=== PATIENT | female | born 1970 | race American Indian/Alaskan Native ===

== ENCOUNTER 2016-08-29 09:47 | Outpatient (CLI) | payer BC ==
[2016-08-29 10:12] LABS: Basophils % (Auto) 0.7 % (0.0-1.8); Eosinophils % (Auto) 1.3 % (0.0-4.3); Hematocrit 37.7 % (30.3-42.9); Hemoglobin 11.8 gm/dl (10.1-14.3); Mean Corpuscular HGB Conc 31 % (30-34); Mean Corpuscular Hemoglobin 20 pg (28-32); Mean Corpuscular Volume 63 fl (79-97); Platelet Count 228 K/mm3 (140-440); Red Blood Count 6.01 M/mm3 (3.65-5.03); Red Cell Distribution Width 16.5 % (13.2-15.2); White Blood Count 6.4 K/mm3 (4.5-11.0)
[2016-08-29 10:35] LABS: Alanine Aminotransferase 7 units/L (7-56); Albumin 4.4 g/dL (3.9-5); Albumin/Globulin Ratio 1.5 %; Alkaline Phosphatase 81 units/L (35-129); Anion Gap 17 mmol/L; BUN/Creatinine Ratio 13.75; Bilirubin,Total 0.4 mg/dL (0.1-1.2); Blood Urea Nitrogen 11 mg/dL (7-17); Calcium 9.7 mg/dL (8.4-10.2); Carbon Dioxide 27 mmol/L (22-30); Cholesterol 131 mg/dL (50-199); Glucose 114 mg/dL (65-100); HDL Cholesterol 62 mg/dL (40-59); LDL Cholesterol,Direct 53 mg/dL (50-130); Potassium 3.7 mmol/L (3.6-5.0); Sodium 138 mmol/L (137-145); Total Protein 7.4 g/dL (6.3-8.2); Triglycerides 81 mg/dL (2-149)
== END 2016-08-29 09:48 | disposition home or self-care (01) ==
LOC: LAB 09:47
PROVIDERS: ATTEND Internal Medicine
DX: E88.9 Metabolic disorder, unspecified (principal); R68.89 Other general symptoms and signs; E03.9 Hypothyroidism, unspecified; E78.00 Pure hypercholesterolemia, unspecified
CPT/HCPCS: 36415; 80053; 80061; 84443; 85025

== ENCOUNTER 2017-01-24 09:09 | Outpatient (CLI) | payer BC ==
[2017-01-24 09:27] LABS: Eosinophils % (Auto) 1.8 % (0.0-4.3); Hematocrit 37.9 % (30.3-42.9); Hemoglobin 11.8 gm/dl (10.1-14.3); Mean Corpuscular HGB Conc 31 % (30-34); Platelet Count 191 K/mm3 (140-440); Red Blood Count 5.98 M/mm3 (3.65-5.03); Red Cell Distribution Width 17.2 % (13.2-15.2); White Blood Count 5.9 K/mm3 (4.5-11.0)
[2017-01-24 09:39] LABS: Mean Corpuscular Hemoglobin 20 pg (28-32); Mean Corpuscular Volume 63 fl (79-97)
[2017-01-24 09:52] LABS: Alanine Aminotransferase 7 units/L (7-56); Albumin 4.4 g/dL (3.9-5); Albumin/Globulin Ratio 1.5 %; Alkaline Phosphatase 69 units/L (35-129); Anion Gap 18 mmol/L; Blood Urea Nitrogen 12 mg/dL (7-17); Carbon Dioxide 25 mmol/L (22-30); Chloride 100.8 mmol/L (98-107); Cholesterol 118 mg/dL (50-199); Glucose 97 mg/dL (65-100); HDL Cholesterol 56 mg/dL (40-59); LDL Cholesterol,Direct 45 mg/dL (50-130); Potassium 3.9 mmol/L (3.6-5.0); Sodium 140 mmol/L (137-145); Total Protein 7.4 g/dL (6.3-8.2); Triglycerides 89 mg/dL (2-149)
== END 2017-01-24 09:10 | disposition home or self-care (01) ==
LOC: LAB 09:09
PROVIDERS: ATTEND Internal Medicine
DX: Z00.00 Encounter for general adult medical examination without abnormal findings (principal); I10 Essential (primary) hypertension; Z79.899 Other long term (current) drug therapy
CPT/HCPCS: 36415; 80053; 80061; 83036; 84443; 85025

== ENCOUNTER 2017-03-06 08:04 | Outpatient (CLI) | payer BC ==
--- NOTE | 2017-03-06 09:33 | Mammography Report ---
BILATERAL MAMMOGRAM: FINDINGS: The breast tissue is heterogeneously dense, which could obscure detection of small masses (approximately 50%-75% glandular). No mass, distortion, suspicious calcification, or skin change is seen. No significant change when compared to prior examination in February 2016. CAD was utilized. IMPRESSION: Negative mammogram. There is no mammographic evidence of malignancy. RECOMMENDATION: Follow-up per ACS guidelines. BI-RADS CATEGORY: 1 = Negative ACR BI-RADS MAMMOGRAPHIC CODES: 0 = Needs additional imaging evaluation; 1 = Negative; 2 = Benign; 3 = Probably benign; 4 = Suspicious; 5 = Malignant; 6 = Known biopsy-proven malignancy COMMENT: 1. Dense breast tissue, i.e., adenosis, fibrocystic changes, etc., may obscure an underlying neoplasm. 2. Approximately 10% of cancers are not detected with mammography. 3. A negative mammography report should not delay biopsy if a clinically suspicious mass is present. COMMENT: Patient follow-up letters are generated in [employer].
== END 2017-03-06 08:05 | disposition home or self-care (01) ==
LOC: MAMMO 08:04
PROVIDERS: ATTEND Obstetrics & Gynecology
DX: Z12.31 Encounter for screening mammogram for malignant neoplasm of breast (principal)
CPT/HCPCS: 77067; G0202

== ENCOUNTER 2017-07-23 15:36 | Outpatient (CLI) | payer BC ==
--- NOTE | 2017-07-23 17:12 | Cat Scan Report ---
FINAL REPORT PROCEDURE: CT head without contrast. TECHNIQUE: Computerized tomography of the head was performed without contrast material. HISTORY: Blunt head trauma, possible concussion. COMPARISON: No prior studies are available for comparison. FINDINGS: The ventricles are normal in size. There is a focal area of diminished attenuation near the right external capsule. This may represent a dilated perivascular space of Virchow-Abner. The donnelly matter and white matter otherwise appear normal. There are no mass lesions. There is no intracranial hemorrhage. The calvarium appears intact. The mastoid air cells and visualized paranasal sinuses are clear. IMPRESSION: Normal study.
== END 2017-07-23 15:37 | disposition home or self-care (01) ==
LOC: CT 15:36
PROVIDERS: ATTEND Internal Medicine
DX: S09.90XD Unspecified injury of head, subsequent encounter (principal); X58.XXXD Exposure to other specified factors, subsequent encounter
CPT/HCPCS: 70450

== ENCOUNTER 2018-02-09 08:15 | Outpatient (CLI) | payer BC ==
[2018-02-09 08:44] LABS: Basophils % (Auto) 0.5 % (0.0-1.8); Eosinophils # (Auto) 0.1 K/mm3 (0.0-0.4); Eosinophils % (Auto) 1.5 % (0.0-4.3); Hematocrit 36.1 % (30.3-42.9); Hemoglobin 11.4 gm/dl (10.1-14.3); Lymphocytes # (Auto) 2.2 K/mm3 (1.2-5.4); Lymphocytes % (Auto) 34.8 % (13.4-35.0); Mean Corpuscular HGB Conc 32 % (30-34); Monocytes # (Auto) 0.4 K/mm3 (0.0-0.8); Platelet Count 179 K/mm3 (140-440); Red Blood Count 5.68 M/mm3 (3.65-5.03); Red Cell Distribution Width 17.8 % (13.2-15.2)
[2018-02-09 08:45] LABS: Mean Corpuscular Hemoglobin 20 pg (28-32); Mean Corpuscular Volume 64 fl (79-97)
[2018-02-09 08:54] LABS: Alanine Aminotransferase 9 units/L (7-56); Albumin 4.3 g/dL (3.9-5); BUN/Creatinine Ratio 18; Blood Urea Nitrogen 14 mg/dL (7-17); Calcium 9.7 mg/dL (8.4-10.2); Chol/HDL Ratio 2.37 %; HDL Cholesterol 69 mg/dL (40-59); Hemolysis Index 0; LDL Cholesterol,Direct 68 mg/dL (50-130)
== END 2018-02-09 08:16 | disposition home or self-care (01) ==
LOC: LAB 08:15
PROVIDERS: ATTEND Internal Medicine
DX: Z01.818 Encounter for other preprocedural examination (principal); E11.9 Type 2 diabetes mellitus without complications; I10 Essential (primary) hypertension
CPT/HCPCS: 36415; 80053; 80061; 84443; 85025

== ENCOUNTER 2018-03-09 08:20 | Outpatient (CLI) | payer BC ==
--- NOTE | 2018-03-09 15:04 | Mammography Report ---
BILATERAL DIGITAL SCREENING MAMMOGRAM with CAD: 03/09/18 08:20:00 CLINICAL: Routine screening. COMPARISON:03/06/17 FINDINGS: The breasts are heterogeneously dense, which may obscure small masses. No mass, architectural distortion or suspicious calcifications. IMPRESSION: No mammographic evidence of malignancy. BI-RADS CATEGORY: 1 - - Negative RECOMMENDATION: Routine mammographic screening in one year. COMMENT: Patient follow-up letters are generated by our [employer] application.
== END 2018-03-09 08:21 | disposition home or self-care (01) ==
LOC: MAMMO 08:20
PROVIDERS: ATTEND Obstetrics & Gynecology
DX: Z12.31 Encounter for screening mammogram for malignant neoplasm of breast (principal); I10 Essential (primary) hypertension
CPT/HCPCS: 77067

== ENCOUNTER 2018-12-17 13:31 | Outpatient (CLI) | payer BC ==
--- NOTE | 2018-12-17 15:20 | Cat Scan Report ---
CT HEAD WITHOUT CONTRAST HISTORY: Left arm numbness since September. COMPARISON: 07/23/2017 TECHNIQUE: CT images of the head were obtained without contrast. CONTRAST: None. FINDINGS: Cerebral and Cerebellar Hemispheres: No evidence of mass or mass effect. No midline shift. No acute hemorrhage. No acute cortical infarction. No extra-axial fluid collection. Ventricles: Normal in size and configuration for age. Osseous Structures: No significant abnormality. Visualized Paranasal Sinuses: No significant abnormality. Additional Findings: None IMPRESSION: 1. No acute intracranial abnormality. NOTE: Acute infarct may not be visible by noncontrast CT. Signer Name: Oscar Pierre MD Signed: 12/17/2018 3:16 PM Workstation Name: [id number]
== END 2018-12-17 13:32 | disposition home or self-care (01) ==
LOC: CT 13:31
PROVIDERS: ATTEND Internal Medicine
DX: R20.2 Paresthesia of skin (principal); I10 Essential (primary) hypertension
CPT/HCPCS: 70450

== ENCOUNTER 2019-01-01 07:52 | Day surgery (SDC) | payer BC ==
--- NOTE | 2019-01-01 12:30 | Magnetic Resonance Report ---
MR CERVICAL SPINE WITHOUT CONTRAST HISTORY: Numbness in arm, neck pain. TECHNIQUE: Multisequence, multiplanar MRI without IV gadolinium. COMPARISON: None. FINDINGS: There is normal height and alignment of the cervical vertebral bodies. Normal bone marrow signal. The posterior elements are in appropriate relationship. The cervical spinal cord is normal size and signal intensity throughout. No central canal stenosis. There is mild disc space narrowing at C5-6. The remaining disc levels are normal height. No facet art hropathy. The paravertebral soft tissues are unremarkable. C2-3: Normal. C3-4: Normal. C4-5: Normal. C5-6: A mild to moderate diffuse posterior bulging disc is identified which effaces the anterior thec al sac. This disc appears to abut the right side of the spinal cord but does not displace it. The spi nal canal measures 1.1 cm in AP dimension. No neural foraminal narrowing. C6-7: Minimal posterior bulging disc without mass effect. C7-T1: Normal. IMPRESSION: Mild to moderate posterior bulging disc at C5-6 as described. No focal herniation. No central canal s tenosis or neural foraminal stenosis. Signer Name: Walter Fisher Jr, MD Signed: 01/01/2019 12:26 PM Workstation Name: [id number]
== END 2019-01-01 07:53 | disposition home or self-care (01) ==
LOC: CATHLABREC 07:52 → EDSTATUS 08:00
PROVIDERS: ATTEND Internal Medicine Cardiovascular Disease
DX: M50.822 Other cervical disc disorders at C5-C6 level (principal); I10 Essential (primary) hypertension; R20.2 Paresthesia of skin; Z79.899 Other long term (current) drug therapy
CPT/HCPCS: 72141

== ENCOUNTER 2019-03-10 08:39 | Outpatient (CLI) | payer BC ==
--- NOTE | 2019-03-10 12:56 | Mammography Report ---
DIGITAL SCREENING MAMMOGRAM WITH CAD, 03/10/2019 INDICATION: Routine screening mammography. TECHNIQUE: Digital bilateral 2D mammography was obtained in the craniocaudal and mediolateral obliq ue projections. This examination was interpreted with the benefit of Computer-Aided Detection analysi s. COMPARISON: 03/09/2018 FINDINGS: Breast Density: The breasts are heterogeneously dense, which may obscure small masses. There is no evidence of dominant mass, suspicious calcifications or architectural distortion in eithe r breast. IMPRESSION: No mammographic evidence of malignancy. Follow up recommendation: Routine yearly BI-RADS Category 1: Negative. A "normal" or negative report should not discourage follow up or biopsy of a clinically significant f inding. A written summary of these findings will be mailed to the patient. The patient will be entered into a mammography reporting system which will generate a reminder letter for the patient's next appointmen t at the appropriate interval. The [employer] recommends yearly mammograms starting at age 40 and continuing as l kee as a woman is in good health. Breast MRI is recommended for women with an approximate 20-25% or greater lifetime risk of breast cancer, including women with a strong family history of breast or ova ryan cancer or who have been treated for Hodgkin's disease. Signer Name: Oscar Pierre MD Signed: 03/10/2019 12:51 PM Workstation Name: [id number]
== END 2019-03-10 08:40 | disposition home or self-care (01) ==
LOC: MAMMO 08:39
PROVIDERS: ATTEND Internal Medicine
DX: Z12.31 Encounter for screening mammogram for malignant neoplasm of breast (principal)
CPT/HCPCS: 77067

== ENCOUNTER 2019-11-19 10:05 | Outpatient (CLI) | payer BC ==
[2019-11-19 10:31] LABS: Basophils % (Auto) 0.6 % (0.0-1.8); Eosinophils # (Auto) 0.1 K/mm3 (0.0-0.4); Eosinophils % (Auto) 1.4 % (0.0-4.3); Hematocrit 36.1 % (30.3-42.9); Hemoglobin 11.7 gm/dl (10.1-14.3); Lymphocytes # (Auto) 2.1 K/mm3 (1.2-5.4); Lymphocytes % (Auto) 35.2 % (13.4-35.0); Mean Corpuscular HGB Conc 32 % (30-34); Mean Corpuscular Volume 65 fl (79-97); Monocytes # (Auto) 0.4 K/mm3 (0.0-0.8); Monocytes % (Auto) 7.3 % (0.0-7.3); Platelet Count 241 K/mm3 (140-440); Red Blood Count 5.58 M/mm3 (3.65-5.03); Red Cell Distribution Width 18.1 % (13.2-15.2)
[2019-11-19 11:00] LABS: Alanine Aminotransferase 10 units/L (7-56); Albumin 4.6 g/dL (3.9-5); BUN/Creatinine Ratio 14; Blood Urea Nitrogen 13 mg/dL (7-17); Calcium 9.8 mg/dL (8.4-10.2); Hemolysis Index 2; LDL Cholesterol,Direct 72 mg/dL (50-130)
[2019-11-19 11:55] LABS: Chol/HDL Ratio 2.27 %; HDL Cholesterol 70 mg/dL (40-59)
== END 2019-11-19 10:06 | disposition home or self-care (01) ==
LOC: LAB 10:05
PROVIDERS: ATTEND Internal Medicine
DX: I10 Essential (primary) hypertension (principal)
CPT/HCPCS: 36415; 80053; 80061; 83036; 84443; 85025

== ENCOUNTER 2020-03-13 08:41 | Outpatient (CLI) | payer BC ==
--- NOTE | 2020-03-13 09:52 | Mammography Report ---
DIGITAL SCREENING MAMMOGRAM WITH CAD, 03/13/2020 INDICATION: Routine screening mammography. SCREENING MAMMOGRAM TECHNIQUE: Digital bilateral 2D mammography was obtained in the craniocaudal and mediolateral obliq ue projections. This examination was interpreted with the benefit of Computer-Aided Detection analysi s. COMPARISON: 03/10/2019 FINDINGS: Breast Density: The breasts are heterogeneously dense, which may obscure small masses. There is no evidence of dominant mass, suspicious calcifications or architectural distortion in eithe r breast. IMPRESSION: Follow up recommendation: Routine yearly BI-RADS Category 1: Negative. A "normal" or negative report should not discourage follow up or biopsy of a clinically significant f inding. A written summary of these findings will be mailed to the patient. The patient will be entered into a mammography reporting system which will generate a reminder letter for the patient's next appointmen t at the appropriate interval. The [employer] recommends yearly mammograms starting at age 40 and continuing as l kee as a woman is in good health. Breast MRI is recommended for women with an approximate 20-25% or greater lifetime risk of breast cancer, including women with a strong family history of breast or ova ryan cancer or who have been treated for Hodgkin's disease. Signer Name: Ty Gunn MD Signed: 03/13/2020 9:47 AM Workstation Name: [id number]
== END 2020-03-13 08:42 | disposition home or self-care (01) ==
LOC: MAMMO 08:41
PROVIDERS: ATTEND Internal Medicine
DX: Z12.31 Encounter for screening mammogram for malignant neoplasm of breast (principal)
CPT/HCPCS: 77067

== ENCOUNTER 2020-03-24 08:14 | Outpatient (CLI) | payer BC ==
[2020-03-24 08:42] LABS: Basophils % (Auto) 0.6 % (0.0-1.8); Eosinophils # (Auto) 0.1 K/mm3 (0.0-0.4); Hematocrit 36.8 % (30.3-42.9); Hemoglobin 11.7 gm/dl (10.1-14.3); Lymphocytes % (Auto) 34.3 % (13.4-35.0); Mean Corpuscular HGB Conc 32 % (30-34); Monocytes # (Auto) 0.4 K/mm3 (0.0-0.8); Monocytes % (Auto) 7.4 % (0.0-7.3); Platelet Count 190 K/mm3 (140-440); Red Blood Count 5.66 M/mm3 (3.65-5.03)
[2020-03-24 08:43] LABS: Mean Corpuscular Volume 65 fl (79-97)
[2020-03-24 09:03] LABS: Alanine Aminotransferase 11 units/L (7-56); Albumin 4.3 g/dL (3.9-5); BUN/Creatinine Ratio 20; Blood Urea Nitrogen 18 mg/dL (7-17); Calcium 9.8 mg/dL (8.4-10.2); Chol/HDL Ratio 2.16 %; HDL Cholesterol 71 mg/dL (40-59); Hemolysis Index 0; LDL Cholesterol,Direct 67 mg/dL (50-130)
== END 2020-03-24 08:15 | disposition home or self-care (01) ==
LOC: LAB 08:14
PROVIDERS: ATTEND Internal Medicine
DX: Z13.29 Encounter for screening for other suspected endocrine disorder (principal); R68.89 Other general symptoms and signs; E78.5 Hyperlipidemia, unspecified; R79.89 Other specified abnormal findings of blood chemistry; R94.6 Abnormal results of thyroid function studies; R73.09 Other abnormal glucose; E03.9 Hypothyroidism, unspecified
CPT/HCPCS: 36415; 80053; 80061; 83036; 84443; 85025

== ENCOUNTER 2020-07-11 16:30 | Emergency (ER) | payer BC ==
[2020-07-11 16:52] VITALS: BP 147/87
[2020-07-11] MEDS ORDERED: ALUM-MAG HYDROXIDE-SIMETHICONE 200-200-20MG/5ML ORAL LIQD 30 ML PO ONE (16:52)
[2020-07-11] MEDS ORDERED: ASPIRIN 325 MG TAB PO ONE (16:52)
[2020-07-11] MEDS ORDERED: LIDOCAINE VISCOUS 2% 15 ML ORAL LIQD PO ONE (16:52)
--- NOTE | 2020-07-11 16:55 | Event Note ---
ED Screening Note Date of service: 07/11/20 Time: 16:53 ED Screening Note: 49-year-old -[place] female with a history of hypertension who presents to the ED with acute onset persistent shortness of breath and constant substernal chest pain which she describes as sharp for the last 2 days. Patient states patient states that her symptoms are worse with exertion and any movement. Patient denies dizziness, syncope, palpitations, change in vision, cough, abdominal pain, nausea, vomiting, fever, chills, sore throat, headache, change in vision, traumatic injury or heavy lifting. This initial assessment/diagnostic orders/clinical plan/treatment(s) is/are subject to change based on patients health status, clinical progression and re- assessment by fellow clinical providers in the ED. Further treatment and workup at subsequent clinical providers discretion. Patient/guardian urged not to elope from the ED as their condition may be serious if not clinically assessed and managed. Initial orders include: CBC, CMP, troponin, chest x-ray, EKG, aspirin 325 mg p.o. x1, GI cocktail
--- NOTE | 2020-07-11 17:27 | XRay Report ---
CHEST PA AND LATERAL VIEWS INDICATION: chest pain. COMPARISON: 08/26/2017. FINDINGS: Support devices: None. Heart: Within normal limits. Lungs/Pleura: No acute pulmonary or pleural findings. IMPRESSION: 1. No acute findings. Signer Name: Carlos Kaye MD Signed: 07/11/2020 5:22 PM Workstation Name: [id number]
[2020-07-11 17:56] LABS: Alanine Aminotransferase 19 units/L (7-56); Albumin 4.9 g/dL (3.9-5); BUN/Creatinine Ratio 19; Basophils % (Auto) 0.5 % (0.0-1.8); Blood Urea Nitrogen 17 mg/dL (7-17); Calcium 9.6 mg/dL (8.4-10.2); Eosinophils # (Auto) 0.1 K/mm3 (0.0-0.4); Hematocrit 35.2 % (30.3-42.9); Hemoglobin 11.4 gm/dl (10.1-14.3); Hemolysis Index 2; Lymphocytes # (Auto) 1.9 K/mm3 (1.2-5.4); Lymphocytes % (Auto) 19.5 % (13.4-35.0); Mean Corpuscular HGB Conc 32 % (30-34); Mean Corpuscular Volume 66 fl (79-97); Monocytes # (Auto) 0.8 K/mm3 (0.0-0.8); Platelet Count 204 K/mm3 (140-440); Red Blood Count 5.38 M/mm3 (3.65-5.03); Red Cell Distribution Width 17.4 % (13.2-15.2)
== END 2020-07-11 19:00 | disposition left against medical advice (07) ==
LOC: ED 16:30
DX: R07.9 Chest pain, unspecified (principal); Z53.21 Procedure and treatment not carried out due to patient leaving prior to being seen by health care provider
CPT/HCPCS: 36415; 71046; 80053; 84484; 85025; 93005

== ENCOUNTER 2020-11-29 09:17 | Emergency (ER) | payer BC ==
--- NOTE | 2020-11-29 10:51 | XRay Report ---
XR chest routine 2V INDICATION / CLINICAL INFORMATION: chest pain. COMPARISON: 07/11/2020 FINDINGS: SUPPORT DEVICES: None. HEART /PULMONARY VASCULATURE: No significant abnormality. LUNGS / PLEURA: No significant pulmonary or pleural abnormality. No pneumothorax. ADDITIONAL FINDINGS: No significant additional findings. IMPRESSION: 1. No acute findings. Signer Name: Conner Upton MD Signed: 11/29/2020 10:47 AM Workstation Name: [email or web address]
--- NOTE | 2020-11-29 10:56 | Cat Scan Report ---
. CT head/brain wo con INDICATION / CLINICAL INFORMATION: 49 years Female; acute left arm/leg numbness X1DAY . TECHNIQUE: Routine CT head without contrast. All CT scans at this location are performed using CT dos e reduction for ALARA by means of automated exposure control. COMPARISON: 11/17/2018 FINDINGS: BRAIN / INTRACRANIAL CONTENTS: No acute hemorrhage, mass effect, midline shift, hydrocephalus, or acu te, large territorial infarct. No signs of significant atrophy or chronic infarct. No significant whi te matter abnormality seen. Presumed perivascular space seen in the inferior gangliocapsular region on the right, which should be of no clinical significance. CRANIOCERVICAL JUNCTION: No significant abnormality. ORBITS: No significant abnormality of visualized orbits. SINUSES / MASTOIDS: Visualized paranasal sinuses and mastoid air cells are essentially clear. ADDITIONAL FINDINGS: None. IMPRESSION: 1. No focal mass, hemorrhage, hydrocephalus, or acute, large territorial infarct. Signer Name: Hank Flores MD, III Signed: 11/29/2020 10:51 AM Workstation Name: [id number]
--- NOTE | 2020-11-29 11:45 | Emergency Department Report ---
ED General Adult HPI - General Chief complaint: High BP Stated complaint: high blood pressure Time Seen by Provider: 11/29/20 09:56 Source: patient Mode of arrival: Ambulatory Limitations: No Limitations - History of Present Illness Initial comments: 49-year-old -[place] female patient with history of hypertension presents with complaints of sudden onset of left arm and leg numbness starting around 6 AM this morning. No prior history of CVA per patient. She denies any headache, vision changes, dizziness, confusion, memory loss, difficulty with speech/ambulation, or weakness in her limbs. Patient reports that her blood pressure has been uncontrolled over the past 5 days and has been running around 170/100. She is compliant with her metoprolol per patient. She also denies any chest pain, shortness of breath, or head injuries. -: Sudden - Related Data Home Medications Medication Instructions Recorded Confirmed Last Taken Metoprolol [Lopressor TAB] 25 mg PO QDAY 08/26/17 08/26/17 08/26/17 hydroCHLOROthiazide [HCTZ] 25 mg PO QDAY 08/26/17 08/26/17 08/26/17 Allergies Allergy/AdvReac Type Severity Reaction Status Date / Time No Known Allergies Allergy Verified 11/29/20 09:42 ED Review of Systems ROS: Stated complaint: high blood pressure Other details as noted in HPI Constitutional: denies: chills, fever Eyes: denies: vision change Respiratory: denies: cough, shortness of breath Cardiovascular: denies: chest pain Neurological: denies: headache, weakness, confusion, abnormal gait ED Past Medical Hx - Past Medical History Hx Hypertension: Yes - Surgical History Past Surgical History?: No - Social History Smoking Status: Never Smoker Substance Use Type: None - Medications Home Medications: Home Medications Medication Instructions Recorded Confirmed Last Taken Type Metoprolol [Lopressor TAB] 25 mg PO QDAY 08/26/17 08/26/17 08/26/17 History hydroCHLOROthiazide [HCTZ] 25 mg PO QDAY 08/26/17 08/26/17 08/26/17 History ED Physical Exam - General Limitations: No Limitations ED Course Vital Signs 11/29/20 11/29/20 09:43 12:11 Temperature 98.5 F Pulse Rate 64 57 L Respiratory 18 12 Rate Blood Pressure 166/98 164/89 O2 Sat by Pulse 97 99 Oximetry ED Medical Decision Making - Lab Data Result diagrams: 11/29/20 11:48 11/29/20 11:48 Lab Results 11/29/20 11/29/20 11/29/20 Range/Units 11:48 11:48 11:48 WBC 6.2 (4.5-11.0) K/mm3 RBC 5.80 H (3.65-5.03) M/mm3 Hgb 12.5 (10.1-14.3) gm/dl Hct 38.1 (30.3-42.9) % MCV 66 L (79-97) fl MCH 22 L (28-32) pg MCHC 33 (30-34) % RDW 18.0 H (13.2-15.2) % Plt Count 212 (140-440) K/mm3 Lymph % (Auto) 29.9 (13.4-35.0) % Imperial % (Auto) 8.4 H (0.0-7.3) % Eos % (Auto) 1.3 (0.0-4.3) % Baso % (Auto) 0.6 (0.0-1.8) % Lymph # (Auto) 1.8 (1.2-5.4) K/mm3 Imperial # (Auto) 0.5 (0.0-0.8) K/mm3 Eos # (Auto) 0.1 (0.0-0.4) K/mm3 Baso # (Auto) 0.0 (0.0-0.1) K/mm3 Seg Neutrophils % 59.8 (40.0-70.0) % Seg Neutrophils # 3.7 (1.8-7.7) K/mm3 Sodium 136 L (137-145) mmol/L Potassium 4.0 (3.6-5.0) mmol/L Chloride 96.4 L (98-107) mmol/L Carbon Dioxide 28 (22-30) mmol/L Anion Gap 16 mmol/L BUN 16 (7-17) mg/dL Glucose 100 (65-100) mg/dL Calcium 10.2 (8.4-10.2) mg/dL Total Bilirubin 0.30 (0.1-1.2) mg/dL AST 31 (5-40) units/L ALT 22 (7-56) units/L Alkaline Phosphatase 113 (35-129) units/L Troponin T < 0.010 (0.00-0.029) ng/mL Total Protein 7.6 (6.3-8.2) g/dL Albumin 4.7 (3.9-5) g/dL Albumin/Globulin Ratio 1.6 % - Medical Decision Making 49-year-old -[place] female patient with history of hypertension presents with complaints of sudden onset of left arm and leg numbness starting around 6 AM this morning. No prior history of CVA per patient. She denies any headache, vision changes, dizziness, confusion, memory loss, difficulty with speech/ambulation, or weakness in her limbs. Patient reports that her blood pressure has been uncontrolled over the past 5 days and has been running around 170/100. She is compliant with her metoprolol per patient. She also denies any chest pain, shortness of breath, or head injuries. She denies any current leg numbness, but continues to complain of tingling in the left arm and hand. No neck pain or injuries to the neck or shoulder per patient. Neuro exam is normal. Blood pressure noted to be 164/89. No significant abnormalities noted on CBC or CMP. Patient in detail with Dr. Hernández who also evaluated patient-symptoms do not appear to be due to CVA/TIA. Recommend patient follows up with her primary care doctor within 2 days. Patient is well-appearing and stable for discharge home. Strict return precautions were discussed in great detail with patient who verbalizes understanding. Critical care attestation.: If time is entered above; I have spent that time in minutes in the direct care of this critically ill patient, excluding procedure time. ED Disposition Clinical Impression: Arm paresthesia, left, Elevated blood pressure reading Disposition: DC- TO HOME OR SELFCARE Is pt being admited?: No Condition: Stable Instructions: Paresthesia, Managing Your Hypertension Referrals: PRIMARY CARE, [Referring] - 2-3 Days
[2020-11-29 12:13] VITALS: BP 164/89
[2020-11-29 12:25] LABS: Basophils % (Auto) 0.6 % (0.0-1.8); Eosinophils # (Auto) 0.1 K/mm3 (0.0-0.4); Eosinophils % (Auto) 1.3 % (0.0-4.3); Hematocrit 38.1 % (30.3-42.9); Hemoglobin 12.5 gm/dl (10.1-14.3); Lymphocytes # (Auto) 1.8 K/mm3 (1.2-5.4); Lymphocytes % (Auto) 29.9 % (13.4-35.0); Mean Corpuscular HGB Conc 33 % (30-34); Monocytes # (Auto) 0.5 K/mm3 (0.0-0.8); Monocytes % (Auto) 8.4 % (0.0-7.3); Platelet Count 212 K/mm3 (140-440)
[2020-11-29 12:42] LABS: Alanine Aminotransferase 22 units/L (7-56); Albumin 4.7 g/dL (3.9-5); Blood Urea Nitrogen 16 mg/dL (7-17); Calcium 10.2 mg/dL (8.4-10.2); Hemolysis Index 18
[2020-11-29 12:50] LABS: Mean Corpuscular Volume 66 fl (79-97)
[2020-11-29 13:06] LABS: BUN/Creatinine Ratio 23
--- NOTE | 2020-11-30 09:14 | Electrocardiograph Report ---
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
== END 2020-11-29 13:52 | disposition home or self-care (01) ==
LOC: ED 09:17
DX: R20.2 Paresthesia of skin (principal); M79.602 Pain in left arm; R03.0 Elevated blood-pressure reading, without diagnosis of hypertension; I10 Essential (primary) hypertension; Z79.899 Other long term (current) drug therapy
CPT/HCPCS: 36415; 70450; 71046; 80053; 84484; 85025; 93005; 99284

== ENCOUNTER 2021-02-16 09:37 | Day surgery (SDC) | payer BC ==
[~2021-02-16 09:37] MED LIST: SODIUM CHLORIDE 0.9% 1000 ML 1,000 ML IV SCH
--- NOTE | 2021-02-16 10:38 | Anesthesia Day of Surgery ---
Anesthesia Day of Surgery - Day of Surgery Patient Examined: Yes Patient H&P Reviewed: Yes Patient is NPO: Yes
--- NOTE | 2021-02-16 10:38 | Anesthesia Consultation ---
Anesthesia Consult and Med Hx Date of service: 02/16/21 - Airway Anesthetic Teeth Evaluation: Good ROM Head & Neck: Adequate Mental/Hyoid Distance: Adequate Mallampati Class: Class II Intubation Access Assessment: Probably Good - Pre-Operative Health Status ASA Pre-Surgery Classification: ASA2 Proposed Anesthetic Plan: MAC - Pulmonary Hx Smoking: No Hx Respiratory Symptoms: No - Cardiovascular System Hx Hypertension: Yes (took antihypertensive this morning) - Central Nervous System CVA: No - Endocrine Hx Renal Disease: No Hx Liver Disease: No Hx Insulin Dependent Diabetes: No Hx Non-Insulin Dependent Diabetes: No Hx Thyroid Disease: No - Other Systems Hx Obesity: No - Additional Comments Anesthesia Medical History Comments: No prior anesthetics. No FHx anesthetic complications.
[2021-02-16] MEDS ORDERED: LIDOCAINE MPF (2%) 20 MG/1 ML VIAL 5 ML ONE (10:49)
[2021-02-16] MEDS ORDERED: propofoL 200 MG/20 ML VIAL IV ONE ×2 (10:49→10:58)
--- NOTE | 2021-02-16 11:09 | Procedure Note ---
Date of procedure: 02/16/21 Pre-op diagnosis: Colon Polyp Screemning Post-op diagnosis: other (No Colon Polyp or Diverticular Disease or Internal Hemorrhoids noted/ Moderate, Severe Melanosis Coli) Procedure: Colonoscopy Anesthesia: MAC Surgeon: ROZ JOSEPH Estimated blood loss: none Pathology: none Condition: stable Disposition: same day (Resume home medicaion and f/u in 1 to 2 weeks ([phone]).)
[2021-02-16 11:28] VITALS: BP 134/84
--- NOTE | 2021-02-16 12:45 | Operative Report ---
DATE OF SURGERY: 02/16/2021 PROCEDURE: Colonoscopy. INDICATIONS: This is a 50-year-old female who has a strong family history of cancer. The patient's father had stomach cancer and maternal aunt had breast cancer. Colonoscopy was done as part of colon polyp screening. She has not had a colonoscopy done before. DESCRIPTION OF PROCEDURE: Procedure was done after getting informed consent with MAC anesthesia. Initial rectal examination was unremarkable. The instrument was passed through the rectum onto the cecum, which was identified by the ileocecal valve and appendiceal orifice. Visualization was fair to good. The cecum was also visualized on the retroverted view. No additional pathology was noted. There was extensive melanosis coli noted throughout the colon, which was moderately severe. Other than for the melanosis coli, the cecum, ascending colon, transverse colon, descending colon and sigmoid as well as the rectum showed normal mucosa. There was no evidence of any polyps, colitis or diverticular disease. The rectum appeared normal on the retroverted view without any evidence of any internal hemorrhoids. No biopsies were done. There was no bleeding associated with the procedure. No complications associated with the procedure. ASSESSMENT: Colon polyp screening, no colon polyps noted. No diverticula noted. Moderately severe melanosis coli. No internal hemorrhoid. The patient has a family history of cancer. PLAN: To give the patient some laxatives like Linzess or Motegrity once the patient comes for followup. Otherwise, resume home medication. Have the patient follow up in the office in 1-2 weeks' time. Procedure was done in the GI lab with assistance of the GI lab team, which included the GI nurse, the emergency spill response technician, and with assistance of anesthesia. TID: [id number] RECEIPT: [id number] KEITH/ALDA
--- NOTE | 2021-02-16 13:04 | Post Anesthesia Evaluation ---
- Post Anesthesia Evaluation Patient Participated: Yes Airway Patent: Yes Stable Respiratory Function: Yes Nausea/Vomiting: No Temp > 96.8F: Yes Pain Manageable: Yes Adequeate Hydration: Yes Anesthesia Complications: No
== END 2021-02-16 11:45 | disposition home or self-care (01) ==
LOC: GIO 09:37
DX: Z12.11 Encounter for screening for malignant neoplasm of colon (principal); Z80.0 Family history of malignant neoplasm of digestive organs; K63.89 Other specified diseases of intestine; I10 Essential (primary) hypertension; Z98.890 Other specified postprocedural states; Z79.899 Other long term (current) drug therapy
CPT/HCPCS: 45378; J2704; J7030

== ENCOUNTER 2021-03-14 08:09 | Outpatient (CLI) | payer BC ==
--- NOTE | 2021-03-14 09:31 | Mammography Report ---
DIGITAL SCREENING MAMMOGRAM WITH CAD, 03/14/2021 CLINICAL INFORMATION / INDICATION: Routine screening TECHNIQUE: Digital bilateral 2D mammography was obtained in the craniocaudal and mediolateral obliqu e projections. This examination was interpreted with the benefit of Computer-Aided Detection analysis . COMPARISON: 03/13/2020 FINDINGS: Breast Density: The breasts are heterogeneously dense, which may obscure small masses. No dominant mass, suspicious calcifications, or architectural distortion in either breast. Mild diffuse lola prominence in the left axilla is very likely related to the Covid immunization in the ipsilateral extremity. IMPRESSION: No mammographic evidence of malignancy. Follow up recommendation: Routine yearly BI-RADS Category 2: Benign. A "normal" or negative report should not discourage follow up or biopsy of a clinically significant f inding. A written summary of these findings will be mailed to the patient. The patient will be entered into a mammography reporting system which will generate a reminder letter for the patient's next appointmen t at the appropriate interval. The [employer] recommends yearly mammograms starting at age 40 and continuing as l kee as a woman is in good health. Breast MRI is recommended for women with an approximate 20-25% or greater lifetime risk of breast cancer, including women with a strong family history of breast or ova ryan cancer or who have been treated for Hodgkin's disease. Signer Name: Terence Vasquez MD Signed: 03/14/2021 9:26 AM Workstation Name: [email or web address]
== END 2021-03-14 08:10 | disposition home or self-care (01) ==
LOC: MAMMO 08:09
PROVIDERS: ATTEND Internal Medicine
DX: Z12.31 Encounter for screening mammogram for malignant neoplasm of breast (principal)
CPT/HCPCS: 77067

== ENCOUNTER 2021-11-02 09:19 | Day surgery (SDC) | payer BC ==
--- NOTE | 2021-11-02 10:10 | Anesthesia Consultation ---
Anesthesia Consult and Med Hx Date of service: 11/02/21 - Airway Anesthetic Teeth Evaluation: Good ROM Head & Neck: Adequate Mental/Hyoid Distance: Adequate Mallampati Class: Class II Intubation Access Assessment: Probably Good - Pre-Operative Health Status ASA Pre-Surgery Classification: ASA2 Proposed Anesthetic Plan: MAC - Pulmonary Hx Smoking: No Hx Respiratory Symptoms: No - Cardiovascular System Hx Hypertension: Yes - Central Nervous System CVA: No - Gastrointestinal Hx Gastroesophageal Reflux Disease: No (family h/o gastric CA) - Endocrine Hx Renal Disease: No Hx Liver Disease: No Hx Insulin Dependent Diabetes: No Hx Non-Insulin Dependent Diabetes: No Hx Thyroid Disease: No - Other Systems Hx Obesity: No
--- NOTE | 2021-11-02 10:11 | Anesthesia Day of Surgery ---
Anesthesia Day of Surgery - Day of Surgery Patient Examined: Yes Patient H&P Reviewed: Yes Patient is NPO: Yes Beta Blockers: Yes (@AM)
[2021-11-02] MEDS ORDERED: propofoL 200 MG/20 ML VIAL IV ONE (10:56)
--- NOTE | 2021-11-02 11:33 | Procedure Note ---
Date of procedure: 11/02/21 Pre-op diagnosis: Dyspepsia/ F/H/O Cancer (Gastric Cancer-father) Post-op diagnosis: other (Mild to Moderate Erosive Esophagitis/ r/O Eosinophilic Esophagitis/ Gastric Erosions and Gastritis/ R/O Celiac disease) Procedure: EGD with cold biopsy Anesthesia: [facility] [place] Surgeon: ROZ JOSEPH Estimated blood loss: minimal Pathology: list Specimen disposition: to lab Condition: stable Disposition: same day (Treat with PPI; avoid aspirin and NSAID for 5 days, otherwise resume previous medication and F/U in 1 to 2 weeks ([phone]).)
--- NOTE | 2021-11-02 11:54 | Operative Report ---
DATE OF SURGERY: 11/02/2021 PROCEDURE PERFORMED: EGD with biopsy. INDICATIONS: This is a 50-year-old -[place] female who has a family history of stomach cancer, the patient's father had stomach cancer. The patient has been having dyspeptic symptoms. EGD was done to assess for the problem. DESCRIPTION OF PROCEDURE: Procedure was done after getting informed consent with MAC anesthesia. The instrument was passed through the hypopharynx into the esophagus, which showed [id number] erosive esophagitis. Photodocumentation and biopsy was done to assess for the severity of the erosive esophagitis. Additional biopsy was done from the mid esophagus to assess for eosinophilic esophagitis. Stomach showed antral erosion and gastritis. Pylorus was patent. Duodenum in the first and second portion appeared normal. Biopsy was done from the second part to rule out for possible celiac disease. Additional biopsy was done from the gastric antrum and gastric body to assess for the severity of the gastric erosion in the antrum and also to rule out for H. pylori gastritis as well as atrophic gastritis. There was minimal bleeding associated with the procedure. No complications associated with the procedure. ASSESSMENT: Dyspepsia, family history of cancer. The patient's father had stomach cancer, [id number] erosive esophagitis, gastric erosion, gastritis, rule out eosinophilic esophagitis, rule out celiac disease. PLAN: To treat the patient with proton pump inhibitor, have the patient avoid aspirin and aspirin-related products for the next few days and follow up in the office in 1-2 weeks' time. Procedure was done in the GI lab with assistance of the GI lab team, which included the GI nurse, the technical specialist cytology and with assistance of anesthesia. TID: [id number] RECEIPT: [id number] KEITH/BANDAR
--- NOTE | 2021-11-02 13:43 | Post Anesthesia Evaluation ---
- Post Anesthesia Evaluation Patient Participated: Yes Airway Patent: Yes Stable Respiratory Function: Yes Nausea/Vomiting: No Temp > 96.8F: Yes Pain Manageable: Yes Adequeate Hydration: Yes Anesthesia Complications: No Block Receding Appropriately: Not Applicable Patient on Ventilator: No
[2021-11-02 15:58] VITALS: BP 131/79
== END 2021-11-02 12:00 | disposition home or self-care (01) ==
LOC: GIO 09:19
DX: R10.13 Epigastric pain (principal); K31.89 Other diseases of stomach and duodenum; K29.70 Gastritis, unspecified, without bleeding; B96.81 Helicobacter pylori [H. pylori] as the cause of diseases classified elsewhere; K20.90 Esophagitis, unspecified without bleeding; I10 Essential (primary) hypertension; Z80.0 Family history of malignant neoplasm of digestive organs; Z79.899 Other long term (current) drug therapy
CPT/HCPCS: 43239; 88305; 88342; J2704; J7030